=== PATIENT | female | born 2005 | race Caucasian/White ===

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

== ENCOUNTER → 2023-02-19 | Outpatient (CLI) | payer BC ==
[2023-02-19 17:12] LABS: BASO # 0.01 K/mm3 (0.02-0.10); EOS # 0.26 K/mm3 (0.04-0.40); EOS % 2.9 % (0.1-4.0); HEMATOCRIT 39.2 % (35.0-45.0); HEMOGLOBIN 12.5 g/dL (12.0-15.0); LYMPH# 2.13 K/mm3 (1.20-3.40); MEAN CELL VOLUME 91 fl (78-95); MEAN CORPUSCULAR HEMOGLOBIN 29 pg (26-32); MEAN CORPUSCULAR HGB CONC 32 g/dL (33-37); MEAN PLATELET VOLUME 10.8 fl (7.4-10.4); MONO # 0.63 K/mm3 (0.10-0.60); NEU # 5.93 K/mm3 (1.40-6.50); PLATELET COUNT 267 K/mm3 (130-400); RED BLOOD COUNT 4.32 M/mm3 (4.10-5.30); RED CELL DISTRIBUTION WIDTH 12.8 % (11.5-14.5)
[2023-02-19 17:15] LABS: ALBUMIN 4.3 g/dL (3.5-5.0)
[2023-02-19 17:16] LABS: POTASSIUM 3.7 mmol/L (3.5-5.1)
[2023-02-19 17:17] LABS: CALCIUM 9.4 mg/dL (8.3-10.5)
[2023-02-19 17:18] LABS: TOTAL PROTEIN 7.6 g/dL (6.4-8.3)
[2023-02-19 17:20] LABS: TOTAL BILIRUBIN 0.2 mg/dL (0.2-1.2)
[2023-02-21 06:32] LABS: HERPES SIMPLEX TYPE 1 IGG INTP Negative (Negative); HERPES SIMPLEX TYPE 2 IGG 0.05 Index (())
== END ==
LOC: LAB 16:52
PROVIDERS: Family Medicine
DX: F41.9 Anxiety disorder, unspecified (principal); F90.9 Attention-deficit hyperactivity disorder, unspecified type; J45.990 Exercise induced bronchospasm; K21.00 Gastro-esophageal reflux disease with esophagitis, without bleeding; N92.1 Excessive and frequent menstruation with irregular cycle; Z72.51 High risk heterosexual behavior

== ENCOUNTER → 2023-08-30 | Outpatient (CLI) | payer BC | LOC: LAB 11:09 | DX: J06.9 Acute upper respiratory infection, unspecified (principal); Z20.822 Contact with and (suspected) exposure to COVID-19 ==